=== PATIENT | female | born 1955 | race Caucasian/White ===

== ENCOUNTER 2022-05-01 09:42 | Outpatient (CLI) | payer MEDICARE, SELFPAY | END 2022-05-01 09:43 | disposition home or self-care (01) | LOC: ANHAUDIO 09:45 | PROVIDERS: PCP Internal Medicine; Visit Provider Otolaryngology | DX: H91.91 Unspecified hearing loss, right ear (principal) | CPT/HCPCS: 92557; 92567 ==

== ENCOUNTER 2022-05-09 13:26 | Outpatient (CLI) | payer MEDICARE, SELFPAY ==
--- NOTE | 2022-05-09 13:49 | ECHO_ITS ---
Patient Info Name: Nini Collins Age: 66 years : 1955 Gender: Female Ht: 64 in Wt: 314 lbs BSA: 2.63 m2 HR: 57 bpm BP: 154 / 88 mmHg Technical Quality: Poor Exam Date: 05/09/2022 2:09 PM Exam Location: [facility] Patient Status: Outpatient Admit Date: 05/09/2022 Staff Ordering Physician: Sebastian Rothman DO Management Trainee Program Stores: Amy Menjivar RDCS Attending Provider: Sebastian Rothman DO Referring Physician: Lorna BRAND; Exam Type: CA echo doppler color flow Study Info Indications R06.01 - Orthopnea Complete two-dimensional, color flow and Doppler transthoracic echocardiogram is performed. Reason for Poor Study: patient body habitus Summary 1. Complete two-dimensional, color flow and Doppler transthoracic echocardiogram is performed. 2. Left ventricular chamber dimension is normal. 3. Left ventricular systolic function is normal, estimated at 60-65%. 4. There is mildly increased left ventricular wall thickness. 5. The left ventricular diastolic function is grade I diastolic dysfunction. 6. E/e' 5 is not elevated. 7. There is mild aortic valve sclerosis. 8. The mitral valve has mildly calcified annulus. 9. There is trace tricuspid valve regurgitation. 10. No pulmonary hypertension, estimated pulmonary arterial systolic pressure is 17 mmHg. Left Ventricle E/e' 5 is not elevated. Left ventricular chamber dimension is normal. Left ventricular systolic function is normal, estimated at 60-65%. There is mildly increased left ventricular wall thickness. The left ventricular diastolic function is grade I diastolic dysfunction. Right Ventricle Right ventricular chamber dimension is normal. Right ventricular systolic function is normal. Left Atria Left atrial chamber dimension is normal. Right Atria Right atrial chamber dimension is normal. Aortic Valve The aortic valve is trileaflet. There is mild aortic valve sclerosis. There is no aortic valve stenosis. There is no aortic valve regurgitation. Pulmonic Valve There is no pulmonic regurgitation. Mitral Valve The mitral valve has mildly calcified annulus. There is no mitral valve stenosis. There is no mitral valve regurgitation. Tricuspid Valve There is trace tricuspid valve regurgitation. No pulmonary hypertension, estimated pulmonary arterial systolic pressure is 17 mmHg. Pericardium/Pleural There is no pericardial effusion. Inferior Vena Cava Normal inferior vena cava with >50% collapse upon inspiration consistent with normal right atrial pressure, 5 mmHg. Aorta The aortic root size at the sinus of Valsalva is normal. Left Ventricular Outflow Tract Name Value Normal LVOT 2D LVOT Diameter 2.0 cm LVOT Doppler LVOT Peak Gradient 7 mmHg LVOT Mean Gradient 4 mmHg LVOT VTI 27 cm LVOT VTI/AV VTI Ratio 0.9 LVOT Stroke Volume 84 ml LVOT CO 5.0 l/min LVOT CI 1.9 l/min/m2 Pul
== END 2022-05-09 13:27 | disposition home or self-care (01) ==
LOC: ANHCARD 13:29
PROVIDERS: PCP Internal Medicine; Visit Provider Internal Medicine
DX: R06.01 Orthopnea (principal); I10 Essential (primary) hypertension; I70.0 Atherosclerosis of aorta
CPT/HCPCS: 93306

== ENCOUNTER 2022-05-25 16:20 | Outpatient (CLI) | payer MEDICARE, SELFPAY ==
--- NOTE | ~2022-05-25 | MR_ITS ---
EXAMINATION: MR lumbar spine wo con DATE: 05/25/2022 17:03 INDICATION: Back pain with radicular pain. TECHNIQUE: Magnetic resonance imaging (MRI) of the lumbar spine was performed without intravenous con trast. Sequences included sagittal T2-weighted FSE, sagittal T2-weighted FS FSE, sagittal T1-weighted FSE, and axial T2-weighted FSE. COMPARISON: None FINDINGS: Alignment is normal. Vertebral body heights are normal. Mild disc height loss at T10-T11 and L1-L2 th rough L4-L5. Moderate disc height loss at L5-S1. Annular fissure at T11-T12 with central disc extrusi on extending 1.6 cm craniocaudally from the level of the midportion of the T12 vertebral body and pos terior 4 mm cephalad to the inferior endplate of T11 which is not included on the axial images. The e xtrusion measures 4 mm AP resulting in mild central canal stenosis at this level. Fibrovascular degen erative endplate changes at L4-L5. Marrow signal is otherwise unremarkable. The conus medullaris term inates at L2. There is normal signal in the caudal spinal cord. T2 hyperintense cysts and some cortic al scarring at the upper pole of the right kidney. Paravertebral soft tissues are unremarkable. The f ollowing disc levels are specifically discussed: L1-L2: Screws mildly bulging with annular fissure and right paracentral disc extrusion measuring 1 mm left to right, 4 mm AP and with disc material extending up to 7 mm cephalad to the level of the infe rior endplate of L1. There is mild bilateral facet joint osteoarthritis. There is no neural foraminal stenosis. There is mild central canal stenosis. L2-L3: Disc is bulging. There is mild left and mild to moderate right facet joint osteoarthritis. The re is mild right neural foraminal stenosis. There is mild central canal stenosis. L3-L4: Disc is bulging. There is mild to moderate bilateral facet joint osteoarthritis. There is mild bilateral neural foraminal stenosis. There is mild central canal stenosis. L4-L5: Disc is mildly bulging. There is hypertrophy of the left appears to have been resected. There is moderate left and mild to moderate right facet joint osteoarthritis. There is mild to moderate bi lateral neural foraminal stenosis. There is no central canal stenosis. L5-S1: Small posterior disc osteophyte complex. Right hemilaminotomy. There is mild to moderate bilat eral facet joint osteoarthritis. There is mild to moderate bilateral neural foraminal stenosis. There is no central canal stenosis. IMPRESSION: 1. Mild to moderate lumbar and lower thoracic spondylosis. 2. Postoperative change of prior right L5-S1 hemilaminotomy, also suggested at L4-L5 where there appe ars to been resection of the right side of the ligamentum flavum. Correlate with surgical history. 3. Scarring at the upper pole of the right kidney. Reviewed, dictated and finalized at location A. IMPRESSION: 1. Mild to moderate lumbar and lower thoracic spondylosis. 2. Postoperative change of prior right L5-S1 hemilaminotomy, also suggested at L4-L5 where there appears to been resection of the right side of the ligamentum flavum. Correlate with surgical history. 3. Scarring at the upper pole of the right kidney.
== END 2022-05-25 16:21 | disposition home or self-care (01) ==
PROVIDERS: PCP Internal Medicine; Visit Provider Internal Medicine
DX: M47.896 Other spondylosis, lumbar region (principal); M47.894 Other spondylosis, thoracic region
CPT/HCPCS: 72148

== ENCOUNTER 2022-06-21 11:48 | Outpatient (CLI) | payer MEDICARE, SELFPAY ==
[2022-06-21 12:39] LABS: Basophils Absolute Auto 0.1 K/mm3 (0.0-0.1); Basophils Percent Auto 0.6 % (0.2-1.2); Eosinophils Absolute Auto 0.3 K/mm3 (0-0.3); Eosinophils Percent Auto 3.5 % (0-4.4); Hematocrit 54.1 % (37.0-47.0); Hemoglobin 17.1 g/dL (12.0-15.0); Immature Granulocyte Absolute 0.02 K/mm3 (0.00-0.031); Immature Granulocyte Percent A 0.2 % (0-0.5); Lymphocytes Absolute Auto 3.49 K/mm3 (0.9-3.2); Lymphocytes Percent Auto 39.3 % (18.3-44.2); Mean Corpuscular HGB Conc 31.6 g/dl (32-36); Mean Corpuscular Hemoglobin 28.5 pg (26-34); Mean Corpuscular Volume 90.3 fl (80-100); Mean Platelet Volume 10.2 fl (7.4-10.4); Monocytes Absolute Auto 0.6 K/mm3 (0.1-0.6); Monocytes Percent Auto 6.6 % (2.6-8.5); Neutrophils Absolute Auto 4.4 K/mm3 (1.3-6.7); Neutrophils Percent Auto 49.8 % (45.5-73.1); Platelet Count Result 231 k/mm3 (150-375); Red Blood Count 5.99 M/mm3 (4.2-5.4); Red Cell Distribution Width 13.6 % (11.5-14.5); White Blood Count 8.9 K/mm3 (4.5-10.0)
[2022-06-21 12:43] LABS: Appearance Urine Cloudy (Clear); Bilirubin Urine Negative (Negative); Blood Urine 1+ (Negative); Color Urine Yellow (Yellow); Glucose Urine UA Negative (Negative); Ketones Urine Negative (Negative); Leukocyte Esterase Ur 2+ LEU/UL (Negative); Nitrate Urine Negative (Negative); Protein Urine Negative (Negative); Specific Grav Ur 1.015 (1.001-1.035)
[2022-06-21 12:52] LABS: Alanine Aminotransferase 95 U/L (6-35); Albumin Level 4.2 g/dL (3.5-5.1); Alkaline Phosphatase 130 U/L (38-126); Anion Gap 11 mmol/L (8-16); Aspartate Amino Transferase 84 U/L (14-36); Bilirubin,Total 0.8 mg/dL (0.2-1.3); Blood Urea Nitrogen 18 mg/dL (7-17); Calcium 10.4 mg/dL (8.4-10.2); Carbon Dioxide 24 mmol/L (22-30); Chloride 103 mmol/L (98-107); Estimated Glomerular Filt Rate > 60; Glucose 131 mg/dL (65-110); Potassium 4.2 mmol/L (3.4-5.0); Sodium 138 mmol/L (137-145)
[2022-06-21 12:53] LABS: Bacteria Urine 2+ /hpf; Mucus Urine Rare /lpf; Squamous Epithelial Cell Urine Few /hpf (Few); WBC Urine 31-50 /hpf
[2022-06-21 12:57] LABS: Add Urine Microscopic? YES
[2022-06-21 13:03] LABS: Parathyroid Intact 134.6 pg/mL (7.5-53.5)
== END 2022-06-21 11:49 | disposition home or self-care (01) ==
LOC: ANHLAB 11:52
PROVIDERS: PCP Internal Medicine; Visit Provider Internal Medicine
DX: R30.0 Dysuria (principal); E83.52 Hypercalcemia; R73.9 Hyperglycemia, unspecified; R53.83 Other fatigue; R76.8 Other specified abnormal immunological findings in serum
CPT/HCPCS: 36415; 80053; 81001; 83970; 85025; 87077; 87086; 87186

== ENCOUNTER 2022-08-29 07:26 | Outpatient (RCR) | payer MEDICARE, SELFPAY ==
[2022-08-01 12:18] VITALS: BMI 53.4
== END 2022-10-30 23:59 | disposition home or self-care (01) ==
LOC: ANHWOC 07:26
PROVIDERS: PCP Physician Assistant; Visit Provider Internal Medicine
DX: M79.3 Panniculitis, unspecified (principal)
CPT/HCPCS: 99212; A9270; G0463

== ENCOUNTER 2022-08-29 09:17 | Outpatient (CLI) | payer MEDICARE, SELFPAY ==
[2022-08-29 09:52] LABS: Basophils Absolute Auto 0.1 K/mm3 (0.0-0.1); Basophils Percent Auto 0.7 % (0.2-1.2); Eosinophils Absolute Auto 0.4 K/mm3 (0-0.3); Eosinophils Percent Auto 5.1 % (0-4.4); Hematocrit 52.2 % (37.0-47.0); Hemoglobin 16.9 g/dL (12.0-15.0); Immature Granulocyte Absolute 0.02 K/mm3 (0.00-0.031); Immature Granulocyte Percent A 0.3 % (0-0.5); Lymphocytes Absolute Auto 2.95 K/mm3 (0.9-3.2); Lymphocytes Percent Auto 40.8 % (18.3-44.2); Mean Corpuscular HGB Conc 32.4 g/dl (32-36); Mean Corpuscular Hemoglobin 29.5 pg (26-34); Mean Corpuscular Volume 91.1 fl (80-100); Mean Platelet Volume 9.9 fl (7.4-10.4); Monocytes Absolute Auto 0.5 K/mm3 (0.1-0.6); Monocytes Percent Auto 6.9 % (2.6-8.5); Neutrophils Absolute Auto 3.3 K/mm3 (1.3-6.7); Neutrophils Percent Auto 46.2 % (45.5-73.1); Platelet Count Result 194 k/mm3 (150-375); Red Blood Count 5.73 M/mm3 (4.2-5.4); Red Cell Distribution Width 13.3 % (11.5-14.5); White Blood Count 7.2 K/mm3 (4.5-10.0)
[2022-08-29 10:02] LABS: Alanine Aminotransferase 83 U/L (6-35); Alkaline Phosphatase 142 U/L (38-126); Anion Gap 8 mmol/L (8-16); Aspartate Amino Transferase 66 U/L (14-36); Bilirubin,Total 0.6 mg/dL (0.2-1.3); Blood Urea Nitrogen 20 mg/dL (7-17); Calcium 10.5 mg/dL (8.4-10.2); Carbon Dioxide 26 mmol/L (22-30); Chloride 101 mmol/L (98-107); Cholesterol 175 mg/dL (0-200); Estimated Glomerular Filt Rate > 60; Glucose 147 mg/dL (65-110); HDL Direct 46 mg/dL; Lactate Dehydrogenase 153 U/L (120-246); Sodium 135 mmol/L (137-145); Triglycerides 162 mg/dL (<150)
[2022-08-29 10:14] LABS: LDL Cholesterol Direct 90 mg/dL
[2022-08-29 12:13] LABS: Hemoglobin A1C 7.1 % (<5.7)
== END 2022-08-29 09:18 | disposition home or self-care (01) ==
LOC: ANHLAB 09:31
PROVIDERS: PCP Physician Assistant; Visit Provider Internal Medicine
DX: I10 Essential (primary) hypertension (principal); D75.1 Secondary polycythemia; R74.8 Abnormal levels of other serum enzymes; R73.9 Hyperglycemia, unspecified; R53.83 Other fatigue; E83.52 Hypercalcemia
CPT/HCPCS: 36415; 80053; 80061; 82607; 82746; 83036; 83615; 84443; 85025

== ENCOUNTER 2022-10-30 09:06 | Outpatient (CLI) | payer MEDICARE, SELFPAY ==
[2022-10-30 10:09] LABS: Albumin Level 4.3 g/dL (3.5-5.1); Anion Gap 5 mmol/L (8-16); Blood Urea Nitrogen 17 mg/dL (7-17); Calcium 10.3 mg/dL (8.4-10.2); Carbon Dioxide 29 mmol/L (22-30); Chloride 103 mmol/L (98-107); Estimated Glomerular Filt Rate > 60; Glucose 109 mg/dL (65-110); Phosphorus 2.7 mg/dL (2.5-4.5); Potassium 3.7 mmol/L (3.4-5.0); Sodium 137 mmol/L (137-145)
[2022-10-30 10:17] LABS: Creatinine Urine 89.5 mg/dL
[2022-10-30 10:23] LABS: MALB Creatinine Ratio 21.7 mg/g (0-30); Microalbumin Urine Random 19.4 mg/L (0-16.7)
[2022-10-30 10:52] LABS: Vitamin D 25 Hydroxy 20.7 ng/mL
== END 2022-10-30 09:07 | disposition home or self-care (01) ==
PROVIDERS: PCP Internal Medicine; Visit Provider Internal Medicine Endocrinology, Diabetes & Metabolism
DX: E83.52 Hypercalcemia (principal); R79.89 Other specified abnormal findings of blood chemistry; E11.65 Type 2 diabetes mellitus with hyperglycemia
CPT/HCPCS: 36415; 80069; 82043; 82306

== ENCOUNTER 2022-10-31 09:30 | Outpatient (RCR) | payer MEDICARE, SELFPAY ==
[2022-10-31 10:19] VITALS: BMI 52.9
[2022-10-31 10:20] VITALS: BMI 52.9
== END 2023-01-10 07:42 | disposition home or self-care (01) ==
LOC: ANHDMC 09:30
PROVIDERS: PCP Internal Medicine; Visit Provider Nurse Practitioner Family
DX: E11.65 Type 2 diabetes mellitus with hyperglycemia (principal); Z71.89 Other specified counseling; Z71.3 Dietary counseling and surveillance
CPT/HCPCS: 97802; G0108

== ENCOUNTER 2022-11-17 10:53 | Outpatient (CLI) | payer MEDICARE, SELFPAY ==
--- NOTE | ~2022-11-17 | CT_ITS ---
EXAMINATION: CT abdomen pelvis wo con DATE: 11/17/2022 11:27 INDICATION: Enterovesical fistula, history of ovarian cancer TECHNIQUE: Computed tomography (CT) of the abdomen and pelvis was performed without intravenous contr ast. The dose-length product (DLP) was 1605.89 mGy-cm. Automated exposure control and iterative recon struction technique were employed. COMPARISON: None FINDINGS: Minimal dependent atelectasis is present in the lung bases. The heart size is normal. Right lower lobe nodules measure up to 3 mm. The gallbladder is surgically absent. The liver, spleen, panc reas, and adrenal glands are normal. There are surgical changes in the stomach. There are nonobstruct ing stones in the upper pole of the right kidney which measure up to 2.1 cm. There is atrophy in the right kidney upper pole. Cysts of the right kidney upper pole measure up to 1.6 cm. The left kidney i s unremarkable. No pathologically enlarged abdominal or pelvic lymph nodes are identified. There is n o free intraperitoneal gas or evidence of bowel obstruction. Colonic diverticulosis is present withou t evidence of diverticulitis. There is severe lumbar spondylosis. There is a small volume of gas in t he urinary bladder. The sigmoid colon abuts the cranial wall of the urinary bladder. No distinct tiss ue plane is visualized between the colon and urinary bladder. IMPRESSION: 1. Sigmoid colon abutting the urinary bladder without distinct tissue plane visualized between the tw o and a small amount of gas in the urinary bladder, consistent with clinical history of enterovesical fistula. 2. Small nodules of the right lower lobe measuring up to 3 mm. Comparison with any available prior im aging is recommended. Reviewed, dictated and finalized at location B. L MARKETING COORDINATOR IMPRESSION: 1. Sigmoid colon abutting the urinary bladder without distinct tissue plane vis ualized between the two and a small amount of gas in the urinary bladder, consi stent with clinical history of enterovesical fistula. 2. Small nodules of the right lower lobe measuring up to 3 mm. Comparison with any available prior imaging is recommended.
== END 2022-11-17 10:54 | disposition home or self-care (01) ==
PROVIDERS: PCP Internal Medicine; Visit Provider Urology
DX: N32.1 Vesicointestinal fistula (principal); R91.8 Other nonspecific abnormal finding of lung field
CPT/HCPCS: 74176

== ENCOUNTER 2022-12-21 07:27 | Outpatient (RCR) | payer MEDICARE, SELFPAY ==
[2022-12-04 12:40] VITALS: BMI 56.0
== END 2023-02-19 09:52 | disposition home or self-care (01) ==
LOC: ANHWOC 07:27
PROVIDERS: PCP Internal Medicine; Visit Provider Physician Assistant
DX: L98.491 Non-pressure chronic ulcer of skin of other sites limited to breakdown of skin (principal)
CPT/HCPCS: 99211; 99213; A9270; G0463

== ENCOUNTER 2023-01-22 09:13 | Outpatient (CLI) | payer MEDICARE, SELFPAY ==
--- NOTE | ~2023-01-22 | XR_ITS ---
EXAMINATION: XR barium swallow DATE: 01/22/2023 10:08 INDICATION: Bariatric surgery status. Prior sleeve gastrectomy and hiatal hernia surgery. TECHNIQUE: The patient drank thick barium, gas-producing crystals, and thin barium. Fluoroscopic spot radiographs of the hypopharynx and esophagus were obtained. Fluoroscopy exposure time was 2.7 minut es. A total of 1386 images were recorded. COMPARISON: None. FINDINGS: The pharynx is symmetric and without evidence of mass lesion or mucosal irregularity. The e sophagus is normal without mass or stricture. Esophageal motility is normal. There is no hiatal herni a. There are surgical clips in the epigastric region. There is an abnormal contour to the gastric car matt with delayed contrast opacification of a small portion of the stomach extending anteriorly and me dially to the gastroesophageal junction suggesting a prior Keny fundoplication. There was no gastro esophageal reflux with provocative maneuvers. IMPRESSION: 1. Abnormal contour to the gastric cardia likely related to a prior Keny fundoplication. Otherwise unremarkable esophagram. Reviewed, dictated and finalized at location A. GRADER IMPRESSION: 1. Abnormal contour to the gastric cardia likely related to a prior Keny fund oplication. Otherwise unremarkable esophagram.
== END 2023-01-22 09:14 | disposition home or self-care (01) ==
LOC: ANHIMG 09:17
PROVIDERS: PCP Internal Medicine; Visit Provider Internal Medicine
DX: Z98.84 Bariatric surgery status (principal)
CPT/HCPCS: 74220

== ENCOUNTER 2023-03-14 13:01 | Outpatient (CLI) | payer MEDICARE, SELFPAY ==
--- NOTE | ~2023-03-14 | DEXA_ITS ---
Bone Density Report Name: JULIO GRAY Age: 67 Sex: Female Ethnicity: White Date of : 1955 Indication: hyperparathyroidism; height loss; inflammatory bowel disease; cancer; hysterectomy; postmenopausal Referring Provider: IMELDA LOPEZ Study: Bone densitometry was performed. Exam Date: March 14, 2023 Accession number: [id number] Bone Density: Region BMD T-score Z-score Classification AP Spine(L1-L4) 0.965 -0.7 1.3 Normal Femoral Neck (Left) 0.639 -1.9 -0.2 Osteopenia Total Hip (Left) 0.820 -1.0 0.4 Normal Femoral Neck (Right) 0.494 -3.2 -1.5 Osteoporosis Total Hip (Right) 0.618 -2.7 -1.2 Osteoporosis Total Hip Mean 0.719 -1.9 -0.4 Osteopenia World Health Organization criteria for BMD impression classify patients as: Normal (T-score at or above -1.0), Osteopenia (T-score between -1.0 and -2.5), or Osteoporosis (T-score at or below -2.5). 10-year Fracture Risk: FRAX not reported because: Some T-score for Spine Total or Hip Total or Femoral Neck at or below -2.5 Clinical Information Provided by Patient: Has used the following medications: Vitamin D Has the following medical conditions: Cancer, Inflammatory bowel diseases, Hyperparathyroidism, Hysterectomy Patient maximum height was 64 Menopause Age: 20 No regular weight bearing exercise Drinks caffeinated beverages Onset of menses at age 14 Number of children 3 Impression: The patient has osteoporosis, based on the Right Femoral Neck T-score. Discussion: INCREASED RISK OF FRACTURE. BONE DENSITY IS UNDESIRABLY LOW AT ONE OR MORE SKELETAL SITES, CONSISTENT WITH POSTMENOPAUSAL OSTEOPOROSIS. This patient's lowest T-score meets the World Health Organization's (WHO) criteria for osteoporosis at one or more sites (T-score -2.5 or below). In untreated patients, the risk of osteoporotic fracture increases approximately two-fold for each 1.0 SD decrease in T-score. Low bone density is not the only risk factor for fracture; also consider factors such as patient's age, frailty or poor health, risk of falling, risk of injury, previous osteoporotic fracture, family history of osteoporosis, cigarette smoking, low body weight, etc. Not everyone with low bone mineral density has osteoporosis; osteomalacia and other metabolic bone disorders should also be considered. Patients who have osteoporosis should be evaluated for specific diseases and conditions (secondary causes) that may cause or contribute to bone loss. The [place] [employer]ocrin[employer] (AACE) and National Osteoporosis Foundation (NOF) recommend pharmacologic intervention for all postmenopausal women whose T-score is in this range. The patient should follow a healthful lifestyle (good nutrition with adequate calcium and vitamin D, and appropriate weight-bearing exercise).
[2023-03-14 14:48] LABS: Basophils Percent Auto 0.4 % (0.2-1.2); Eosinophils Absolute Auto 0.2 K/mm3 (0-0.3); Eosinophils Percent Auto 2.4 % (0-4.4); Hematocrit 51.7 % (37.0-47.0); Hemoglobin 17.3 g/dL (12.0-15.0); Immature Granulocyte Absolute 0.03 K/mm3 (0.00-0.031); Immature Granulocyte Percent A 0.3 % (0-0.5); Lymphocytes Absolute Auto 3.55 K/mm3 (0.9-3.2); Lymphocytes Percent Auto 38.3 % (18.3-44.2); Mean Corpuscular HGB Conc 33.5 g/dl (32-36); Mean Corpuscular Hemoglobin 29.6 pg (26-34); Mean Corpuscular Volume 88.4 fl (80-100); Mean Platelet Volume 9.9 fl (7.4-10.4); Monocytes Absolute Auto 0.7 K/mm3 (0.1-0.6); Neutrophils Absolute Auto 4.8 K/mm3 (1.3-6.7); Neutrophils Percent Auto 51.6 % (45.5-73.1); Platelet Count Result 256 k/mm3 (150-375); Red Blood Count 5.85 M/mm3 (4.2-5.4); Red Cell Distribution Width 13.9 % (11.5-14.5); White Blood Count 9.3 K/mm3 (4.5-10.0)
[2023-03-14 14:59] LABS: Albumin Level 4.4 g/dL (3.5-5.1); Anion Gap 5 mmol/L (8-16); Blood Urea Nitrogen 15 mg/dL (7-17); Calcium 10.7 mg/dL (8.4-10.2); Carbon Dioxide 29 mmol/L (22-30); Chloride 105 mmol/L (98-107); Estimated Glomerular Filt Rate > 60; Glucose 98 mg/dL (65-110); Phosphorus 2.8 mg/dL (2.5-4.5); Potassium 3.8 mmol/L (3.4-5.0); Sodium 139 mmol/L (137-145)
[2023-03-14 15:11] LABS: Parathyroid Intact 140.1 pg/mL (7.5-53.5)
[2023-03-14 15:20] LABS: Creatinine Urine 83.6 mg/dL
[2023-03-14 15:25] LABS: MALB Creatinine Ratio 20.7 mg/g (0-30); Microalbumin Urine Random 17.3 mg/L (0-16.7)
[2023-03-14 15:58] LABS: Vitamin D 25 Hydroxy 65.6 ng/mL
[2023-03-14 16:13] LABS: Hepatitis B Surface Antigen Negative (Negative)
[2023-03-14 16:19] LABS: HAV RESULT Negative (Negative); Hepatitis B Core IgM Result Negative (Negative)
[2023-03-14 16:30] LABS: Hepatitis C Virus Antibody Negative (Negative)
[2023-03-14 16:56] LABS: Alanine Aminotransferase 52 U/L (6-35); Albumin Level 4.2 g/dL (3.5-5.1); Alkaline Phosphatase 105 U/L (38-126); Anion Gap 7 mmol/L (8-16); Aspartate Amino Transferase 46 U/L (14-36); Blood Urea Nitrogen 16 mg/dL (7-17); Calcium 10.6 mg/dL (8.4-10.2); Carbon Dioxide 29 mmol/L (22-30); Chloride 103 mmol/L (98-107); Cholesterol 171 mg/dL (0-200); Estimated Glomerular Filt Rate > 60; Glucose 99 mg/dL (65-110); HDL Direct 43 mg/dL; Potassium 3.8 mmol/L (3.4-5.0); Sodium 139 mmol/L (137-145); Triglycerides 167 mg/dL (<150)
[2023-03-14 17:09] LABS: LDL Cholesterol Direct 84 mg/dL
[2023-03-14 17:59] LABS: Erythrocyte Sedimentation Rate 5 mm/hr (0-20)
[2023-03-14 18:02] LABS: Rheumatoid Factor < 12.0 IU/ML (<12)
[2023-03-14 18:05] LABS: Folic Acid 8.7 ng/mL (2.76->20)
== END 2023-03-14 13:02 | disposition home or self-care (01) ==
PROVIDERS: Physician Assistant; PCP Internal Medicine; Referring Provider Internal Medicine; Visit Provider Internal Medicine Endocrinology, Diabetes & Metabolism
DX: E83.52 Hypercalcemia (principal); Z78.0 Asymptomatic menopausal state; R79.89 Other specified abnormal findings of blood chemistry; E11.65 Type 2 diabetes mellitus with hyperglycemia; R53.83 Other fatigue; M25.50 Pain in unspecified joint
CPT/HCPCS: 36415; 77080; 80053; 80061; 80069; 80074; 82043; 82306; 82607; 82746; 83970; 84443; 85025; 85652; 86430

== ENCOUNTER 2023-03-14 15:59 | Outpatient (CLI) | payer MEDICARE, SELFPAY ==
--- NOTE | ~2023-03-14 | XR_ITS ---
EXAM: XR shoulder LT min 2V DATE: 03/14/2023 16:21 HISTORY: LATERAL LT SHOULDER PAIN FOR 3 MONTHS NO INJURY . COMPARISON: None available. FINDINGS: Slightly decreased mineralization. No fracture or dislocation. No lytic or blastic lesion. Moderate AC joint hypertrophy. Mild narrowing and moderate subchondral sclerosis at the glenohumeral joint. No erosion or periosteal change. Soft tissues within normal limits. 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 Reviewed, dictated and finalized at location K.
== END 2023-03-14 16:00 | disposition home or self-care (01) ==
PROVIDERS: PCP Internal Medicine; Visit Provider Physician Assistant
DX: M25.512 Pain in left shoulder (principal); M15.9 Polyosteoarthritis, unspecified
CPT/HCPCS: 36415; 73030; 77080; 80053; 80061; 80069; 80074; 82043; 82306; 82607; 82746; 83970; 84443; 85025; 85652; 86430

== ENCOUNTER 2023-05-01 11:06 | Outpatient (CLI) | payer MEDICARE, SELFPAY ==
[2023-05-01 12:23] LABS: Albumin Level 4.3 g/dL (3.5-5.1); Anion Gap 5 mmol/L (8-16); Blood Urea Nitrogen 9 mg/dL (7-17); Calcium 10.2 mg/dL (8.4-10.2); Carbon Dioxide 30 mmol/L (22-30); Chloride 104 mmol/L (98-107); Estimated Glomerular Filt Rate > 60; Glucose 98 mg/dL (65-110); Phosphorus 2.5 mg/dL (2.5-4.5); Potassium 3.7 mmol/L (3.4-5.0); Sodium 139 mmol/L (137-145)
[2023-05-01 12:31] LABS: Vitamin D 25 Hydroxy 73.8 ng/mL
[2023-05-01 20:40] LABS: Parathyroid Intact 145.6 pg/mL (7.5-53.5)
== END 2023-05-01 11:07 | disposition home or self-care (01) ==
PROVIDERS: PCP Internal Medicine; Visit Provider Internal Medicine Endocrinology, Diabetes & Metabolism
DX: R79.89 Other specified abnormal findings of blood chemistry (principal); E83.52 Hypercalcemia
CPT/HCPCS: 36415; 80069; 82306; 83970

== ENCOUNTER 2023-05-02 08:00 | Outpatient (CLI) | payer MEDICARE, SELFPAY ==
[2023-05-03 12:09] LABS: Creatinine 24 Hour Urine 0.8 gm/24 (0.8-1.8); Creatinine Urine 65.6 mg/dL; Total Volume 24 Hour Urine 1250 ml
[2023-05-08 07:42] LABS: Total Volume 1250
== END 2023-05-02 08:01 | disposition home or self-care (01) ==
LOC: ANHLAB 18:45
PROVIDERS: PCP Internal Medicine; Visit Provider Internal Medicine Endocrinology, Diabetes & Metabolism
DX: E83.52 Hypercalcemia (principal); R79.89 Other specified abnormal findings of blood chemistry
CPT/HCPCS: 81050; 82340; 82570

== ENCOUNTER 2023-05-16 09:30 | Outpatient (RCR) | payer MEDICARE, SELFPAY | END 2023-05-21 08:43 | disposition home or self-care (01) | LOC: ANHDMC 09:30 | PROVIDERS: PCP Internal Medicine; Visit Provider Nurse Practitioner Family | DX: E11.65 Type 2 diabetes mellitus with hyperglycemia (principal); Z71.89 Other specified counseling | CPT/HCPCS: G0109 ==

== ENCOUNTER 2023-06-08 09:48 | Outpatient (CLI) | payer MEDICARE, SELFPAY ==
--- NOTE | ~2023-06-08 | XR_ITS ---
XR ankle LT min 3V DATE: 06/08/2023 11:46 INDICATION: Left ankle and foot pain. TECHNIQUE: 4 views COMPARISON: None FINDINGS: There is osteopenia. No fracture or dislocation of the ankle or disruption of the ankle mortise. No periosteal reaction or bone destruction. There is spurring at the inferior tip of the medial malleolus but tibiotalar ankle joint space is rel atively well preserved. Prominent posterior calcaneal enthesopathy. Posterior tibial artery calcification. IMPRESSION: Osteopenia Posterior calcaneal enthesopathy Reviewed, dictated and finalized at location B.
--- NOTE | ~2023-06-08 | MR_ITS ---
MRI of the left ankle Clinical history: Pain Technique: Coronal proton-density and proton-density fat-sat images, axial proton-density and proton- density fat-sat images, and sagittal proton-density and proton-density fat-sat images were acquired. Findings: Syndesmotic ligaments are intact. Anterior and posterior talofibular ligaments and calcaneo fibular ligament are intact. Deltoid ligament is intact. Medial flexor tendons, peroneal tendons, anterior extensor tendons, and Achilles tendon are intact. There is no osteochondral lesion of the talar dome. Bone marrow signals are essentially unremarkable. Joint spaces are preserved. Plantar fascia is intact. Normal signal preserved in the sinus Tarsi. No soft tissue mass or fluid co llection seen. Impression: No significant abnormality seen. Reviewed, dictated and finalized at [facility]. Impression: No significant abnormality seen.
--- NOTE | ~2023-06-08 | MR_ITS ---
MRI of the left knee Clinical history: Pain Technique: Coronal proton density and proton density-weighted images, sagittal proton-density and T2 fat-sat images, and axial proton-density fat-saturated images were acquired. Findings: Anterior and posterior cruciate ligaments appear intact. Medial collateral ligament and the lateral collateral ligament complex are intact. Popliteus tendon is intact. There is complex tearing involving the posterior horn and body of the medial meniscus. These portions are nearly completely macerated/absent. No definite lateral meniscal tear identified. There is diffuse high-grade chondromalacia throughout the entirety of the medial compartment with med ial compartment narrowing. There is minimal chondral thinning in the lateral compartment. There is di ffuse mild to moderate chondral thinning of the femoral trochlea. There is extensive high-grade chond ral lesion patella. There are large tricompartmental osteophytes, especially prominent at the medial joint line. Extensor mechanism is intact. Small joint effusion is present. Minimal Adame's cyst present. Impression: Diffuse complex tearing of the posterior horn and body medial assist, which portions are nearly compl etely macerated/absent. Severe osteoarthritis of the medial compartment. Moderate to advanced degenerative change of the mcelroy llofemoral compartment. Mild to moderate degenerative change of the lateral compartment. Reviewed, dictated and finalized at location M. Impression: Diffuse complex tearing of the posterior horn and body medial assist, which por tions are nearly completely macerated/absent. Severe osteoarthritis of the medial compartment. Moderate to advanced degenerat mariann change of the patellofemoral compartment. Mild to moderate degenerative duglas nge of the lateral compartment.
--- NOTE | ~2023-06-08 | XR_ITS ---
XR knee LT 3V DATE: 06/08/2023 11:46 INDICATION: Medial and posterior left knee pain TECHNIQUE: [place] and standing AP and lateral views COMPARISON: None FINDINGS: There is tricompartment osteophytosis, most severe at the medial compartment and patellofem oral compartment. There is [id number] at the medial compartment. There is periarticular spurring at all 3 compartments. Osteopenia. Mild suprapatellar knee joint effusion is suggested. Superior pole patellar enthesopathy at the quadriceps tendon insertion. No fracture or dislocation, periosteal reaction or bone destruction, radiopaque intra-articular loose body or, calcinosis. IMPRESSION: Tricompartment osteophytes, severe at the medial compartment and patellofemoral compartme nt Mild suprapatellar knee joint effusion Osteopenia Reviewed, dictated and finalized at location B. IMPRESSION: Tricompartment osteophytes, severe at the medial compartment and pa tellofemoral compartment Mild suprapatellar knee joint effusion Osteopenia
== END 2023-06-08 09:49 ==
LOC: MICIMG 09:50
PROVIDERS: PCP Internal Medicine; Visit Provider Anesthesiology Pain Medicine
DX: M25.572 Pain in left ankle and joints of left foot (principal); S83.232A Complex tear of medial meniscus, current injury, left knee, initial encounter; M17.12 Unilateral primary osteoarthritis, left knee; M85.872 Other specified disorders of bone density and structure, left ankle and foot; M77.32 Calcaneal spur, left foot; M85.862 Other specified disorders of bone density and structure, left lower leg; M25.762 Osteophyte, left knee; M25.462 Effusion, left knee; T14.90XA Injury, unspecified, initial encounter
CPT/HCPCS: 73562; 73610; 73721